=== PATIENT | male | born 1945 | race Caucasian/White ===

== ENCOUNTER 2016-12-13 18:51 | Emergency (ER) | payer MEDICARE, BC ==
--- NOTE | ~2016-12-13 | CR172 ---
[facility], [place]. [facility] A Service of [facility] & [facility] RADIOLOGY TEXT RESULTS PATIENT: SANDRA GRISSOM LOCATION: SED : 47 UNIT #: [id number] AGE: [address]: Joan Escobar APRN SEX: M ORDER DR: [id number] [place] [id number] E MR#: [id number] Acc #: [id number] NAME: SANDRA GRISSOM. : 1945 SEX: M STUDY DATE/TIME: 12/13/2016 19:06 UNIT: SED ROOM: STUDY DESCRIPTION: CR Knee 3 Views Lt Attending Physician: Joan Escobar A.P.R.N. Ordering Physician: Joan Cameron A.P.R.N. Primary Care Physician: Medhat Hernandez M.D. MEDICAL IMAGING REPORT This report is preliminary unless electronic signature is present. EXAM Left knee radiograph. INDICATIONS Fall at home. Left knee pain. FINDINGS 3 views of the left knee without comparison. There is no acute fracture, dislocation or effusion. There is moderate degenerative change of the knee, greatest with medial joint space narrowing. IMPRESSION No acute findings. Dictated by... Aashish Fabian M.D. THIS IS AN ELECTRONICALLY VERIFIED REPORT Aashish Fabian M.D. at 12/14/2016 3:04 PM HUNTER/adilson TD: 12/14/2016 00:10 JOB #: [id number] MEDICAL IMAGING REPORT Page 1 of 1
[~2016-12-13 18:51] MED LIST: ACETAMINOPHEN PO; ASPIRIN325 M1 PO; ASPIRIN81 MG PO; BYSTOLIC5 MG PO; CARDIZEM90 MG PO; CIPRO250 M1 PO; COUMADIN5 MG PO; DICLOFENAC PO; ELIQUIS5 MG PO; FLOMAX0.4 M1 PO; HCTZ PO; HYDROCODON-ACE1 EAC7 PO; HYDROCODON-ACE1 EACH PO; LASIX20 MG PO; LEVOTHROID125 MCG PO; LEVOXYL125 MCG PO; LEXAPRO PO; LIPITOR PO; LIPITOR40 MG PO; LISINOPRIL5 MG PO; LOPRESSOR PO; LORTAB 7.5-5001 TAB PO; LOTREL 10/20 MG1 CAP PO; MEDROL PO; MELATONIN10 M1 PO; METOPROLOL TAR25 MG PO; MOBIC PO; MONTELUKAST SOD10 MG PO; MULTI-DAY VITAM1 TAB PO; MULTI-VITAMIN1 EAC1 PO; OXYCODON-ACETA1 EAC1 PO; PHENERGAN PO; PRADAXA75 MG PO; PRINIVIL10 MG PO; PROAIR HFA8.5 GM IH; QUETIAPINE FUMA25 MG PO; REMERON30 MG PO; SEROQUEL25 MG PO; SERTRALINE HCL50 MG PO; SINGULAIR PO; SYNTHROID125 PO; TOPROL XL PO; TUMS; TYLOX 5/500 CAP1 CAP PO; TYLOX1 CAP 5/50 PO; VALTREX PO; ZESTRIL5 MG PO; ZOCOR PO; ZOLOFT50 MG PO
== END 2016-12-13 20:20 | disposition home or self-care (01) ==
LOC: SED 18:51
DX: S80.02XA Contusion of left knee, initial encounter (principal); I48.91 Unspecified atrial fibrillation; F17.210 Nicotine dependence, cigarettes, uncomplicated; Z98.890 Other specified postprocedural states; Z79.899 Other long term (current) drug therapy; W18.30XA Fall on same level, unspecified, initial encounter; Y92.009 Unspecified place in unspecified non-institutional (private) residence as the place of occurrence of the external cause
CPT/HCPCS: 29530; 73562; 99283

== ENCOUNTER 2017-05-21 16:26 | Emergency (ER) | payer MEDICARE, BC ==
[~2017-05-21] VITALS: Ht 193 cm; Wt 104.3 kg
== END 2017-05-21 19:14 | disposition home or self-care (01) ==
LOC: CFTX 16:26 → CED 16:26 → CFTX 18:42
DX: H57.11 Ocular pain, right eye (principal); I48.91 Unspecified atrial fibrillation
CPT/HCPCS: 99283